=== PATIENT | male | born 1950 | race Two or more races ===

== ENCOUNTER 2024-09-09 15:17 | Emergency (ER) | payer MEDICARE, SELFPAY ==
[2024-09-09 15:18] VITALS: BMI 36.3
[2024-09-09 15:36] VITALS: BP 122/70; PULSE 70; RESP 20; TEMP 38.8; O2SAT 96
--- NOTE | 2024-09-09 15:42 | XR_ITS ---
Examination: PA lateral chest 2 views Technique: Upright PA and lateral chest 2 views Standing time: September 09, 2024 1551 hrs. Comparison November 14, 2007 Indications: Chest pain and coughing today. Findings: Interval significant bilateral lung opacities consistent with pneumonia Mild prominence left ventricle Mild vascular congestion Impression: Interval significant bilateral pneumonia.
[2024-09-09 15:59] VITALS: TEMP 38.8
[2024-09-09] MEDS: IBUPROFEN TAB 400 MG TABLET 800 MG PO (15:59)
[2024-09-09 17:37] VITALS: BP 126/67; PULSE 62; RESP 18; TEMP 37.5; O2SAT 95
--- NOTE | 2024-09-09 17:41 | EDNOTE_ITS ---
<Statement entered by Saira Garner MD - 09/17/24 18:13> As co-signing physician, I was present and available for consult prn. I concur with the plan and care as documented by the midlevel provider. Upper Respiratory Inf. RME/HPI General Chief Complaint: Flu Like Symptoms Stated Complaint: FLU SYMPTOMSFOR 6 DAYS Time Seen by Provider: 09/09/24 15:32 Arrival date/time: 09/09/24 15:17 74-year-old male presents to the emergency department today complaints of flulike symptoms for 5 days patient reports no chest pain or shortness of breath patient reports mild headache no dizziness. Patient with runny nose congestion and fever and cough Limitations: no limitations Related Data Previous Rx's ?Medication ?Instructions ?Recorded albuterol sulfate 90 mcg/actuation 2 puff inhalation Q6H PRN 09/09/24 aerosol inhaler (Ventolin HFA) shortness of breath or wheezing #8.5 grams azithromycin 500 mg tablet See Rx Instructions PO .COMPLEX #6 09/09/24 tabs benzonatate 100 mg capsule 100 mg PO TID #14 caps 09/09/24 ibuprofen 800 mg tablet 800 mg PO TID PRN pain #30 tabs 09/09/24 prednisone 10 mg tablet 30 mg (3 x 10 mg) PO BID 3 days 09/09/24 #18 tabs Allergies Allergy/AdvReac Type Severity Reaction Status Date / Time No Known Allergies Allergy Verified 09/09/24 15:27 Review of Systems Review of Systems Systems Reviewed: All systems reviewed, normal except as documented Constitutional Constitutional: Reports system reviewed and no additional complaints, except as documented, Reports body ache(s), Reports fever(s) and Reports headache(s) Eyes Eyes: Reports system reviewed and no additional complaints, except as documented and Denies blurry vision ENT Ears, Nose, Mouth, and Throat: Reports system reviewed and no additional complaints, except as documented, Reports headache(s), Denies nasal congestion and Denies nasal discharge Cardiovascular Cardiovascular: Reports system reviewed and no additional complaints, except as documented, Denies chest pain and Denies dyspnea Respiratory Respiratory: Reports system reviewed and no additional complaints, except as documented, Denies chest congestion, Denies cough and Denies dyspnea Gastrointestinal Gastrointestinal: Reports system reviewed and no additional complaints, except as documented and Denies abdominal pain Integumentary/Breasts Skin/Breast: Reports system reviewed and no additional complaints, except as documented and Denies rash Neurologic Neurologic: Reports system reviewed and no additional complaints, except as documented, Reports as per HPI and Reports headache(s) Past Medical History Social History SMOKING STATUS: Never smoker ED Exam General Limitations: Present no limitations General appearance: Present alert and in no apparent distress; Absent lethargic Head Head exam: Present atraumatic Eye Eye exam: Present normal appearance, PERRL and EOMI; Absent conjunctival injection ENT ENT exam: Present normal exam, normal oropharynx and mucous membranes moist Neck Neck exam: Present normal inspection, full ROM and trachea midline Chest Chest inspection: Present normal inspection and symmetric chest wall rise Respiratory Respiratory exam: Present normal lung sounds bilaterally; Absent respiratory distress, wheezes, stridor, accessory muscle use or prolonged expiratory phase Cardiovascular Cardiovascular exam: Present regular rate, normal rhythm and normal heart sounds Abdominal Exam Abdominal exam: Present soft and normal bowel sounds Extremities Exam Extremities exam: Present normal inspection and full ROM Back Exam Back exam: Present normal inspection and full ROM Neurological Exam Neurological exam: Present alert, oriented X3 and CN II-XII intact Psychiatric Psychiatric exam: Present normal affect and normal mood Skin Skin exam: Present warm, dry, intact and normal color Course Quality Measures none Orders Category Date Time Status Bedside COVID-19 Antigen Test NOW Care 09/09/24 15:42 Completed Bedside Influenza A&B Antigen Test NOW Care 09/09/24 15:42 Completed XR chest 2V Stat Exams 09/09/24 15:42 Completed Ibuprofen Tab [Motrin Tab] Med 09/09/24 15:42 Discontinued 800 mg PO X1 ONE Lidocaine 1% 20 ml [Xylocaine 1% 20 ML] Med 09/09/24 17:41 Discontinued 2.1 ml INFL X1 ONE cefTRIAXone [Rocephin] Med 09/09/24 17:41 Discontinued 1,000 mg IM X1 ONE Vital Signs Vital signs: Vital Signs Temperature 101.8 F H 09/09/24 15:36 Pulse Rate 70 09/09/24 15:36 Respiratory Rate 20 09/09/24 15:36 Blood Pressure 122/70 09/09/24 15:36 Pulse Oximetry (%) 96 09/09/24 15:36 Oxygen Delivery Method Room Air 09/09/24 15:36 O2 saturation 96% room air within normal limits Upper Respiratory Infection MDM Narrative MDM Narrative:: 74-year-old male presents to the emergency department today complaints of flulike symptoms for 5 days patient reports no chest pain or shortness of breath patient reports mild headache no dizziness. Patient with runny nose congestion and fever and cough Although the patient does have a fever patient is not tachycardic and does not appear septic patient jovial and smiling On exam patient well-appearing patient does not appear ill or toxic patient's not appear in acute distress Imaging obtained consistent with pneumonia Patient checked for flu and COVID patient came back positive for the flu Patient given Rocephin discharged with antibiotics prednisone and cough medicine Patient has strict instructions to return for worsening symptoms patient states understanding Patient data External records reviewed:: [facility] previous records Clinical information provided by:: patient Social determinants that could affect healthcare access:: none Patient has the following chronic illnesses:: See history How is presenting disease/condition affected by chronic disease/condition?: uneffected by Evaluation data The following diagnostics were reviewed and interpreted by me:: lab results and radiology exam(s) Lab and/or radiology exams considered but not ordered:: Labs and radiology obtained Interpretation Summary: Reviewed by me Medications / Prescriptions Medications or Prescriptions considered but not ordered:: Given Medication administrations:: Medication Administration History Discontinued Medications Ceftriaxone Sodium (Ceftriaxone Sod Inj 1,000 Mg Vial) 1,000 mg IM X1 ONE Stop: 09/09/24 17:42 Last Admin: 09/09/24 17:48 Dose: 1,000 mg Documented By: VALARIE Ibuprofen (Ibuprofen Tab 400 Mg Tablet) 800 mg PO X1 ONE Stop: 09/09/24 15:43 Last Admin: 09/09/24 15:59 Dose: 800 mg Documented By: Lidocaine HCl (Lidocaine Hcl 1% 20 Ml Vial) 2.1 ml INFL X1 ONE Stop: 09/09/24 17:42 Last Admin: 09/09/24 17:48 Dose: 2.1 ml Documented By: Given Consultations Consultation(s) initiated? (list below): No Diagnosis Upper Respiratory Differential Diagnosis: upper respiratory infection, viral infection, bronchitis, influenza and pharyngitis Most likely diagnosis given after review of the tests above:: Influenza, pneumonia Admission Indicated Admission indicated?: not indicated Admission Request Was there a request for admission?: No Disposition Plan Disposition Plan: Discharge Discharge Attestation Discharge Attestation: The patient and all family members were given an opportunity to ask questions and understood the discharge instructions. Discharge instructions specifically effects, indications for sooner follow up or return to the emergency department, and the expected course of current diagnosis. Patient condition: Stable Discharge Plan Plan Patient Disposition: HOME (Self Care) Disposition Comment: Stable Prescriptions/Referrals Prescriptions/Med Rec: New prednisone 10 mg tablet 30 mg PO BID 3 Days Qty: 18 0RF benzonatate 100 mg capsule 100 mg PO TID Qty: 14 0RF albuterol sulfate [Ventolin HFA] 90 mcg/actuation HFA aerosol inhaler 2 puff inhalation Q6H PRN (Reason: shortness of breath or wheezing) Qty: 8.5 0RF azithromycin 500 mg tablet See Rx Instructions .ROUTE .COMPLEX Qty: 6 0RF Rx Instructions: take 500 mg today (day 1), then 250 mg for 4 days (days 2-5) ibuprofen 800 mg tablet 800 mg PO TID PRN (Reason: pain) Qty: 30 0RF Referrals: Jelena King MD [Primary Care Provider] - 09/12/24 Problem List Clinical Impression: Pneumonia, Influenza Patient/Caregiver Discharge Instructions Education Materials: The Flu (Influenza) Additional Instructions: Please follow up with your primary care doctor in the next 24-48hrs for any worsening symptoms return here immediately Print Language: [place] Citizen Stand Alone Forms: Margi Award Info., Patient Portal Info Letter PA/PRODUCTION CONTROL MANAGER Supervising Physician PA/EVY Supervising Physician: Dr. Garner
[2024-09-09] MEDS: cefTRIAXone SOD INJ 1,000 MG VIAL 1000 MG IM (17:48)
[2024-09-09] MEDS: LIDOCAINE HCL 1% 20 ML VIAL 2.1 ML INFL (17:48)
== END 2024-09-09 17:56 | disposition home or self-care (01) ==
PROVIDERS: Emergency Provider Emergency Medicine; PCP Obstetrics & Gynecology
DX: J11.00 Influenza due to unidentified influenza virus with unspecified type of pneumonia (principal); J11.1 Influenza due to unidentified influenza virus with other respiratory manifestations
CPT/HCPCS: 71046; 87400; 87811; 96372; 99283; J0696; J3490; A9270